=== PATIENT | female | born 1965 | race Caucasian/White ===

== ENCOUNTER 2021-04-20 19:49 | Inpatient (IN) | payer MEDICAID, OTHER ==
[~2021-04-20] VITALS: Ht 157.5 cm; Wt 76.7 kg
[2021-04-20] MEDS ORDERED: ONDANSETRON HCL 4MG/2ML INJ IV STA (20:45)
[2021-04-20] MEDS ORDERED: MORPHINE SULFATE 4 MG/ML CPJ (NOT FOR IM USE) IV STA (20:45)
[2021-04-20] MEDS ORDERED: SODIUM CHLORIDE 0.9% 1,000 ML IV ONE (20:45)
[2021-04-20 21:01] LABS: BASOPHILS % 0.8 % (0.0-2.0); EOSINOPHILS % 0.3 % (0.0-5.0); HEMATOCRIT. 42.7 % (36.0-48.0); HEMOGLOBIN. 14.6 g/dL (12.0-16.0); LYMPHOCYTES % 16.9 % (20.0-50.0); MEAN CORPUSCULAR HEMOGLOBIN 29.5 pg (28.0-32.0); MEAN CORPUSCULAR VOLUME 86.3 fL (81.0-99.0); MEAN PLATELET VOLUME 7.6 fl (7.4-10.4); MONOCYTES % 3.5 % (2.0-8.0); NEUTROPHILS % 78.5 % (40.0-76.0); PLATELET 357 x1000/uL (130-400); RED BLOOD CELL COUNT 4.95 mill/uL (4.2-5.4); RED CELL DISTRIBUTION WIDTH 13.7 % (11.6-14.6)
[2021-04-20 21:07] LABS: CLARITY URINE CLEAR (CLEAR); COLOR URINE YELLOW (YELLOW); KETONES URINE 3+ (NEGATIVE); LEUKOCYTE ESTERASE URINE NEGATIVE (NEGATIVE); NITRITE URINE NEGATIVE (NEGATIVE); OCCULT BLOOD URINE NEGATIVE (NEGATIVE); PH URINE 5.5 (4.5-8.0); PROTEIN URINE TRACE (NEGATIVE); SPECIFIC GRAVITY URINE 1.029 (1.005-1.030); UROBILINOGEN URINE 0.2 E.U./dL (0.2-1.0)
[2021-04-20 21:07] LABS: CHLORIDE 104 mEq/L (98-107)
[2021-04-20] MEDS ORDERED: KETOROLAC 15MG/ML VIAL IV ONE (21:15)
[2021-04-20] MEDS ORDERED: ONDANSETRON HCL 4MG/2ML INJ IV ONE (22:30)
[2021-04-20] MEDS: AMPICILLIN SOD/SULBACTAM NA 3 G in SODIUM CHLORIDE 0.9% 100 ML IV SCH (23:09)
[2021-04-20] MEDS ORDERED: METRONIDAZOLE 500 MG PREMIX 100 ML IV ONE (23:15)
[2021-04-21] MEDS: AMPICILLIN SOD/SULBACTAM NA 3 G in SODIUM CHLORIDE 0.9% 100 ML IV SCH (04:30)
[2021-04-21 10:30] VITALS: BP 155/74
[2021-04-21 12:00] VITALS: BP 152/72
[2021-04-21] MEDS ORDERED: DEXTROSE 50% WATER 50ML SYRINGE IV PRN (12:15)
[2021-04-21] MEDS: BLOOD SUGAR DIAGNOSTIC STRIP TEST SCH ×3 (12:45→21:00)
[2021-04-21] MEDS: INSULIN LISPRO 100 UNITS/ML SUBCUT SCH ×3 (12:50→21:00)
[2021-04-21] MEDS: ONDANSETRON HCL 4MG/2ML INJ IV PRN ×2 (13:07→21:19)
[2021-04-21] MEDS: ACETAMINOPHEN 325MG TABLET PO PRN (13:08)
[2021-04-21] MEDS: AMLODIPINE 10MG TABLET PO SCH (13:08)
[2021-04-21] MEDS: SODIUM CHLORIDE 0.9% 1,000 ML IV SCH (13:08)
[2021-04-21] MEDS ORDERED: METF-414 MT (14:07)
[2021-04-21] MEDS ORDERED: LOSA50TA41 MT (14:08)
[2021-04-21] MEDS: PIPERACILLIN/TAZOBACTAM 3.375 G in DEXT 5% WATER 100 ML IV SCH ×2 (15:06→21:19)
[2021-04-21 16:00] VITALS: BP 144/80
[2021-04-21 16:28] LABS: BASOPHILS % 0.2 % (0.0-2.0); HEMATOCRIT. 39.1 % (36.0-48.0); HEMOGLOBIN. 13.6 g/dL (12.0-16.0); MEAN CORPUSCULAR HEMOGLOBIN 29.8 pg (28.0-32.0); MEAN CORPUSCULAR VOLUME 85.3 fL (81.0-99.0); MEAN PLATELET VOLUME 7.5 fl (7.4-10.4); MONOCYTES % 2.5 % (2.0-8.0); NEUTROPHILS % 84.3 % (40.0-76.0); PLATELET 317 x1000/uL (130-400); RED BLOOD CELL COUNT 4.58 mill/uL (4.2-5.4); RED CELL DISTRIBUTION WIDTH 13.8 % (11.6-14.6)
[2021-04-21 16:41] LABS: CHLORIDE 105 mEq/L (98-107)
[2021-04-21] MEDS: MESALAMINE 400 MG CAPSULE.DR PO SCH (17:47)
[2021-04-21 20:00] VITALS: BP 137/82
[2021-04-22] VITALS (7 sets, daily range): BP systolic 117–174; BP diastolic 66–89
[2021-04-22] MEDS: PIPERACILLIN/TAZOBACTAM 3.375 G in DEXT 5% WATER 100 ML IV SCH ×4 (02:59→20:56)
[2021-04-22] MEDS: SODIUM CHLORIDE 0.9% 1,000 ML IV SCH ×2 (02:59→15:17)
[2021-04-22] MEDS: ONDANSETRON HCL 4MG/2ML INJ IV PRN ×3 (03:24→12:51)
[2021-04-22] MEDS: BLOOD SUGAR DIAGNOSTIC STRIP TEST SCH ×4 (07:16→20:57)
[2021-04-22] MEDS: INSULIN LISPRO 100 UNITS/ML SUBCUT SCH ×4 (07:50→21:00)
[2021-04-22] MEDS: MESALAMINE 400 MG CAPSULE.DR PO SCH ×3 (08:48→17:29)
[2021-04-22] MEDS: AMLODIPINE 10MG TABLET PO SCH (08:49)
[2021-04-22] MEDS: LOSARTAN POTASSIUM 50 MG TABLET PO SCH (11:40)
[2021-04-22] MEDS ORDERED: CLONIDINE 0.1MG TABLET PO PRN (12:15)
[2021-04-22] MEDS: ACETAMINOPHEN 325MG TABLET PO PRN (12:51)
[2021-04-23] VITALS: BP 124/67
[2021-04-23] MEDS: PIPERACILLIN/TAZOBACTAM 3.375 G in DEXT 5% WATER 100 ML IV SCH ×4 (01:52→20:50)
[2021-04-23 04:00] VITALS: BP 124/65
[2021-04-23] MEDS: SODIUM CHLORIDE 0.9% 1,000 ML IV SCH ×2 (04:15→17:50)
[2021-04-23] MEDS: INSULIN LISPRO 100 UNITS/ML SUBCUT SCH ×4 (07:50→21:00)
[2021-04-23] MEDS: BLOOD SUGAR DIAGNOSTIC STRIP TEST SCH ×4 (07:59→20:55)
[2021-04-23 08:00] VITALS: BP 146/93
[2021-04-23] MEDS: MESALAMINE 400 MG CAPSULE.DR PO SCH ×3 (08:19→16:48)
[2021-04-23] MEDS: AMLODIPINE 10MG TABLET PO SCH (08:19)
[2021-04-23] MEDS: LOSARTAN POTASSIUM 50 MG TABLET PO SCH (08:19)
[2021-04-23] MEDS: ONDANSETRON HCL 4MG/2ML INJ IV PRN ×2 (08:22→16:48)
[2021-04-23 12:00] VITALS: BP 157/79
[2021-04-23] MEDS: ACETAMINOPHEN 325MG TABLET PO PRN (13:03)
[2021-04-23 16:00] VITALS: BP 133/68
[2021-04-23] MEDS: MECLIZINE 25MG TABLET PO PRN (18:22)
[2021-04-23 20:00] VITALS: BP 115/72
[2021-04-24] VITALS: BP 119/60
[2021-04-24] MEDS: PIPERACILLIN/TAZOBACTAM 3.375 G in DEXT 5% WATER 100 ML IV SCH ×4 (02:12→21:29)
[2021-04-24 04:00] VITALS: BP 122/73
[2021-04-24] MEDS: BLOOD SUGAR DIAGNOSTIC STRIP TEST SCH ×4 (06:34→21:30)
[2021-04-24] MEDS: SODIUM CHLORIDE 0.9% 1,000 ML IV SCH ×2 (06:34→20:15)
[2021-04-24] MEDS: ONDANSETRON HCL 4MG/2ML INJ IV PRN ×3 (06:34→21:30)
[2021-04-24] MEDS: INSULIN LISPRO 100 UNITS/ML SUBCUT SCH ×4 (07:22→22:12)
[2021-04-24] MEDS: MECLIZINE 25MG TABLET PO PRN (07:38)
[2021-04-24 08:00] VITALS: BP 140/76
[2021-04-24] MEDS: AMLODIPINE 10MG TABLET PO SCH (08:55)
[2021-04-24] MEDS: MESALAMINE 400 MG CAPSULE.DR PO SCH ×3 (08:55→17:22)
[2021-04-24] MEDS: LOSARTAN POTASSIUM 50 MG TABLET PO SCH (08:55)
[2021-04-24 09:11] LABS: SACCHAROMYCES CEREVISIAE IGG <20.0 Units (0.0-24.9); SACCHAROMYCES CEREVISIAE IGM <20.0 Units (0.0-24.9)
[2021-04-24 12:00] VITALS: BP 136/70
[2021-04-24 13:10] LABS: ATYPICAL pANCA <1:20 titer (Neg:<1:20)
[2021-04-24 16:00] VITALS: BP 125/80
[2021-04-24] MEDS: METOCLOPRAMIDE HCL 5MG TABLET PO SCH (17:22)
[2021-04-24 20:00] VITALS: BP 134/74
[2021-04-24] MEDS: ACETAMINOPHEN 325MG TABLET PO PRN (21:30)
[2021-04-25] VITALS: BP 109/88
[2021-04-25] MEDS: METOCLOPRAMIDE HCL 5MG TABLET PO SCH ×3 (00:12→16:39)
[2021-04-25] MEDS: PIPERACILLIN/TAZOBACTAM 3.375 G in DEXT 5% WATER 100 ML IV SCH ×3 (02:07→16:39)
[2021-04-25 04:00] VITALS: BP 117/64
[2021-04-25] MEDS: BLOOD SUGAR DIAGNOSTIC STRIP TEST SCH ×3 (06:25→17:41)
[2021-04-25] MEDS: INSULIN LISPRO 100 UNITS/ML SUBCUT SCH ×3 (07:50→17:41)
[2021-04-25 08:00] VITALS: BP 131/77
[2021-04-25] MEDS ORDERED: AMLO10TA80 PO (08:38)
[2021-04-25] MEDS ORDERED: MECL-159 MT (08:38)
[2021-04-25] MEDS ORDERED: METO5TAB2 PO (08:38)
[2021-04-25] MEDS: MESALAMINE 400 MG CAPSULE.DR PO SCH ×3 (09:59→17:00)
[2021-04-25] MEDS: MECLIZINE 25MG TABLET PO PRN ×2 (09:59→16:38)
[2021-04-25] MEDS: AMLODIPINE 10MG TABLET PO SCH (09:59)
[2021-04-25] MEDS: SODIUM CHLORIDE 0.9% 1,000 ML IV SCH (10:05)
[2021-04-25] MEDS: LOSARTAN POTASSIUM 50 MG TABLET PO SCH (10:05)
[2021-04-25] MEDS: ONDANSETRON HCL 4MG/2ML INJ IV PRN (10:06)
[2021-04-25 12:00] VITALS: BP 140/81
[2021-04-25 14:14] VITALS: BP 81/95
[2021-04-25 16:00] VITALS: BP 155/72
== END 2021-04-25 21:30 | disposition home or self-care (01) | DRG 244 ==
LOC: ER 20:00 → 6EST 22:31 → ENRESERV 04-21 07:34
PROVIDERS: ADMIT Internal Medicine; ATTEND Internal Medicine
DX: K57.30 Diverticulosis of large intestine without perforation or abscess without bleeding (principal); E11.65 Type 2 diabetes mellitus with hyperglycemia; K76.0 Fatty (change of) liver, not elsewhere classified; K52.9 Noninfective gastroenteritis and colitis, unspecified; G90.8 Other disorders of autonomic nervous system; E66.9 Obesity, unspecified; I10 Essential (primary) hypertension; K44.9 Diaphragmatic hernia without obstruction or gangrene; Z90.710 Acquired absence of both cervix and uterus; Z68.30 Body mass index [BMI] 30.0-30.9, adult; Z71.3 Dietary counseling and surveillance
CPT/HCPCS: 36415; 71045; 74176; 80048; 80053; 81003; 82962; 85025; 86256; 86671; 93005; 97162; 99285; J0295; J1815; J1885; J2270; J2405; J2543; J3490; J7030; J7050; J7060; J8597